=== PATIENT | male | born 1995 | race Two or more races ===

== ENCOUNTER 2019-01-19 20:36 | Emergency (ER) | payer OTHER ==
[~2019-01-19] VITALS: Ht 170.2 cm; Wt 74.8 kg
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
[2019-01-19 20:45] VITALS: BP 125/76
[2019-01-19] MEDS ORDERED: Tetanus/Diptheria/Pertussis IM ONE (21:30)
[2019-01-19] MEDS ORDERED: Bacitracin Oint UD TOPIC ONE ×2 (21:30)
[2019-01-19] MEDS ORDERED: BACITRACIN15 GM TOPIC (21:42)
--- NOTE | 2019-01-19 21:49 | NUR ---
ER DISCHARGE NOTE: Patient is cleared to be discharged per ERMD, pt is aox4, on room air, with stable vital signs. pt was given dc and prescription instructions, PAtient is accompanied by [employer]. was given the okay to book for medical clearance.
[2019-01-19 21:50] VITALS: BP 122/70
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
== END 2019-01-19 21:50 | disposition home or self-care (01) ==
LOC: EDBD 20:36 → EMR 21:06
DX: S51.812A Laceration without foreign body of left forearm, initial encounter (principal); Y04.0XXA Assault by unarmed brawl or fight, initial encounter; Y93.9 Activity, unspecified; Y92.9 Unspecified place or not applicable
CPT/HCPCS: 90471; 90715; 99283